=== PATIENT | female | born 1995 | race Asian ===

== ENCOUNTER 2016-04-15 15:33 | Inpatient (IN) | payer OTHER ==
[~2016-04-15] VITALS: Ht 157.5 cm; Wt 59.3 kg
[2016-04-15] MEDS ORDERED: FENTANYL CITRATE INJ 50 MCG/1 ML 2 ML VIAL IV STA ×2 (15:45→16:20)
[2016-04-15] MEDS ORDERED: ONDANSETRON INJ 2 MG/ML 2 ML VIAL IV STA (15:45)
[2016-04-15] MEDS ORDERED: SODIUM CHLORIDE 0.9% 1000ML 1,000 ML IV STA (15:45)
--- NOTE | 2016-04-15 16:14 | DIAGNOSTIC IMAGING REPORT ---
CHEST ONE VIEW PORTABLE CLINICAL HISTORY: vomiting, AMS COMPARISON STUDY: No previous studies for comparison. FINDINGS: The bones soft tissues and hemidiaphragms are normal. The cardiomediastinal silhouette is normal. The lungs are clear. The pulmonary vasculature is normal. IMPRESSION: Negative chest. Electronically signed by: Francisco Javier Castillo M.D. 04/15/2016 4:12 PM Dictated Date/Time: 04/15/2016 4:12 PM
[2016-04-15 16:47] LABS: BASO % 0.3 %; BASO ABS # 0.03 K/uL (0-0.2); COMPLETE YES; EOS % 1.3 %; HEMATOCRIT 36.6 % (37-47); IG% 0.3 %; LYMPH % 13.1 %; LYMPH ABS # 1.55 K/uL (1.2-3.4); MEAN CORPUSCULAR HEMOGLOBIN 30.3 pg (25-34); MEAN CORPUSCULAR HGB CONC 34.4 g/dl (32-36); MEAN PLATELET VOLUME 9.9 fL (7.4-10.4); MONO % 7.4 %; NEUT % 77.6 %; PLATELET COUNT 276 K/uL (130-400); RED BLOOD COUNT 4.16 M/uL (4.2-5.4); WHITE BLOOD COUNT 11.83 K/uL (4.8-10.8)
[2016-04-15 16:50] LABS: ISTAT CREATININE 0.6 mg/dl (0.6-1.3); ISTAT HEMOGLOBIN 13.3 g/dl (12.0-16.0); ISTAT IONIZED CALCIUM 1.13 mmol/l (1.12-1.32)
[2016-04-15 16:53] LABS: BUN/CREATININE RATIO 18.5 (10-20); CALCIUM 8.7 mg/dl (8.5-10.1); CREATININE 0.68 mg/dl (0.60-1.20); POTASSIUM 3.8 mmol/L (3.5-5.1)
--- NOTE | 2016-04-15 16:54 | DIAGNOSTIC IMAGING REPORT ---
HEAD CT NONCONTRAST CT DOSE: 638.56 mGycm HISTORY: Mental status change Vomiting, AMS TECHNIQUE: Multiaxial CT images of the head were performed without the use of intravenous contrast. Comparison: None. Findings: The paranasal sinuses and mastoid air cells are clear. The calvarium and skull base are intact. The ventricles and sulci are within normal limits. There is no mass, hematoma, midline shift, or acute infarct. Impression: No acute intracranial abnormality. Electronically signed by: Francisco Javier Castillo M.D. 04/15/2016 4:53 PM Dictated Date/Time: 04/15/2016 4:52 PM
[2016-04-15] MEDS ORDERED: HYDROmorphone INJ 1 MG/ML SYR IV STA ×2 (16:55→18:00)
[2016-04-15 16:59] LABS: PREG INTERNAL NEGATIVE QC NEG CLEAR BACKGROUND; PREG INTERNAL POSITIVE QC POS CONTROL LINE
[2016-04-15] MEDS ORDERED: OPTIRAY 320 IV PRN (17:00)
[2016-04-15 17:02] LABS: ACETAMINOPHEN < 2 ug/ml (10-30)
--- NOTE | 2016-04-15 17:05 | DIAGNOSTIC IMAGING REPORT ---
ABDOMEN AND PELVIS CT WITH IV CONTRAST CT DOSE: 1156.92 mGycm HISTORY: Right lower quadrant abdominal pain. Vomiting. TECHNIQUE: Multiaxial CT images of the abdomen and pelvis were performed following the use of intravenous contrast. COMPARISON STUDY: None. FINDINGS: The lung bases are clear. No pneumoperitoneum. No pneumatosis. The liver, gallbladder, pancreas, spleen, kidneys, and adrenal glands are unremarkable. No retroperitoneal lymphadenopathy. Mild bladder wall thickening may be due to underdistention. There is a heterogeneous appearance to the endometrium. There is unremarkable. Diffuse mild thickening of the colon which is fluid-filled. No evidence for bowel obstruction. There is also a distended and fluid-filled appendix with associated periappendiceal fat stranding/fluid. No perforation or abscess. The appendix measures up to 1 cm in diameter. IMPRESSION: 1. Distended and fluid-filled appendix with associated periappendiceal fat stranding/fluid. Therefore, these findings are consistent with acute appendicitis. However, there is an associated pancolitis. Therefore, it is unclear whether this represents primary appendicitis versus secondary appendicitis due to the colitis. The colitis favors an infectious or inflammatory process. 2. Mild bladder wall thickening which may be due to underdistention. Recommend correlation with urinalysis. 3. Heterogeneous appearance the endometrium which may be age-related. Follow-up pelvic ultrasound in 6-8 weeks is recommended to ensure resolution. Electronically signed by: Reyes Noel M.D. 04/15/2016 5:04 PM Dictated Date/Time: 04/15/2016 4:58 PM
[2016-04-15] MEDS ORDERED: CEFOXITIN SOD 2 GM VIAL IV STA (17:09)
--- NOTE | 2016-04-15 18:08 | EMERGENCY ROOM VISIT NOTE ---
History Report prepared by Yayo: Delonte Vuong Under the Supervision of: Dr. Nikita Bonilla M.D. First contact with patient: 15:41 Chief Complaint: ABDOMINAL PAIN Stated Complaint: AMS, AB PAIN, VOMITING History of Present Illness The patient is an unknown year old female who presents to the Emergency Room with complaints of constant right lower quadrant abdominal pain beginning several hours prior to arrival. As per EMS, the patient was found in [place] [facility] on campus in the bathroom vomiting. They note a classmate states the patient was complaining of right sided abdominal pain during class and was fidgety. The patient notes she took Advil for her symptoms this morning. She denies diarrhea, burning with urination, fever, recent falls, hitting her head, chance of , recent alcohol use, and history of abdominal surgery. The history is limited secondary to the patient's noncompliance with conversation. 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 Past Medical & Surgical Medical Problems: (1) No pertinent past medical history Family History Patient reports no known family medical history. Social History Marital Status: single Occupation Status: [employer] Current/Historical Medications No Active Prescriptions or Reported Meds Allergies Coded Allergies: No Known Allergies (Unverified , 04/15/16) Physical Exam Vital Signs Date Time Temp Pulse Resp B/P Pulse Ox O2 Delivery O2 Flow Rate FiO2 04/15/16 18:30 72 16 113/67 97 04/15/16 18:00 84 114/66 100 04/15/16 16:55 66 16 105/69 99 Room Air 04/15/16 16:20 76 16 116/90 95 Room Air 04/15/16 16:10 66 04/15/16 16:00 62 18 100/74 98 Room Air 04/15/16 15:41 36.4 62 18 90/69 100 Room Air Physical Exam GENERAL: Patient is somnolent but answers questions in hushed voice, sometimes not at all. Will not open eyes. She is able to move head from side to side without problems. Uncomfortable appearing. periodically moaning. HEENT: No acute trauma, normocephalic atraumatic, mucous membranes dry, no nasal congestion, no scleral icterus. NECK: No stridor, no adenopathy, no meningismus, trachea is midline. LUNGS: No dyspnea. Clear to auscultation and equal bilaterally. No wheeze, no rhonchi. HEART: Regular rate and rhythm. No murmurs, rubs, gallops appreciated. ABDOMEN: Jumps off bed with palpation to right lower quadrant. Soft, bowel sounds positive, no masses appreciated, no peritonitis. BACK: No midline tenderness, no CVA tenderness EXTREMITIES: Normal motion all extremities, no cyanosis, no edema. NEUROLOGIC: Alert and oriented, no acute motor or sensory deficits, no focal weakness, cranial nerves grossly intact. SKIN: No rash, no jaundice, no diaphoresis. Medical Decision & Procedures ER Provider Diagnostic Interpretation: X ray results are stated below per my interpretation and the radiologist's interpretation. CHEST ONE VIEW PORTABLE CLINICAL HISTORY: vomiting, AMS COMPARISON STUDY: No previous studies for comparison. FINDINGS: The bones soft tissues and hemidiaphragms are normal. The cardiomediastinal silhouette is normal. The lungs are clear. The pulmonary vasculature is normal. IMPRESSION: Negative chest. Electronically signed by: Francisco Javier Castillo M.D. 04/15/2016 4:[address] DOSE: 638.56 mGycm HISTORY: Mental status change Vomiting, AMS TECHNIQUE: Multiaxial CT images of the head were performed without the use of intravenous contrast. Comparison: None. Findings: The paranasal sinuses and mastoid air cells are clear. The calvarium and skull base are intact. The ventricles and sulci are within normal limits. There is no mass, hematoma, midline shift, or acute infarct. Impression: No acute intracranial abnormality. Electronically signed by: Francisco Javier Castillo M.D. 04/15/2016 4:53 PM ABDOMEN AND PELVIS CT WITH IV CONTRAST CT DOSE: 1156.92 mGycm HISTORY: Right lower quadrant abdominal pain. Vomiting. TECHNIQUE: Multiaxial CT images of the abdomen and pelvis were performed following the use of intravenous contrast. COMPARISON STUDY: None. FINDINGS: The lung bases are clear. No pneumoperitoneum. No pneumatosis. The liver, gallbladder, pancreas, spleen, kidneys, and adrenal glands are unremarkable. No retroperitoneal lymphadenopathy. Mild bladder wall thickening may be due to underdistention. There is a heterogeneous appearance to the endometrium. There is unremarkable. Diffuse mild thickening of the colon which is fluid-filled. No evidence for bowel obstruction. There is also a distended and fluid-filled appendix with associated periappendiceal fat stranding/fluid. No perforation or abscess. The appendix measures up to 1 cm in diameter. IMPRESSION: 1. Distended and fluid-filled appendix with associated periappendiceal fat stranding/fluid. Therefore, these findings are consistent with acute appendicitis. However, there is an associated pancolitis. Therefore, it is unclear whether this represents primary appendicitis versus secondary appendicitis due to the colitis. The colitis favors an infectious or inflammatory process. 2. Mild bladder wall thickening which may be due to underdistention. Recommend correlation with urinalysis. 3. Heterogeneous appearance the endometrium which may be age-related. Follow-up pelvic ultrasound in 6-8 weeks is recommended to ensure resolution. Electronically signed by: Reyes Noel M.D. 04/15/2016 5:04 PM Laboratory Results 04/15/16 16:11 Red Blood Count 4.16, Mean Corpuscular Volume 88.0, Mean Corpuscular Hemoglobin 30.3, Mean Corpuscular Hemoglobin Concent 34.4, Mean Platelet Volume 9.9, Neutrophils (%) (Auto) 77.6, Lymphocytes (%) (Auto) 13.1, Monocytes (%) (Auto) 7.4, Eosinophils (%) (Auto) 1.3, Basophils (%) (Auto) 0.3, Neutrophils # (Auto) 9.18, Lymphocytes # (Auto) 1.55, Monocytes # (Auto) 0.88, Eosinophils # (Auto) 0.15, Basophils # (Auto) 0.03 04/15/16 16:11 Test 04/15/16 16:11 04/15/16 16:16 04/15/16 16:28 White Blood Count 11.83 K/uL (4.8-10.8) Red Blood Count 4.16 M/uL (4.2-5.4) Hemoglobin 12.6 g/dL (12.0-16.0) Hematocrit 36.6 % (37-47) Mean Corpuscular Volume 88.0 fL (80-100) Mean Corpuscular Hemoglobin 30.3 pg (25-34) Mean Corpuscular Hemoglobin Concent 34.4 g/dl (32-36) Platelet Count 276 K/uL (130-400) Mean Platelet Volume 9.9 fL (7.4-10.4) Neutrophils (%) (Auto) 77.6 % Lymphocytes (%) (Auto) 13.1 % Monocytes (%) (Auto) 7.4 % Eosinophils (%) (Auto) 1.3 % Basophils (%) (Auto) 0.3 % Neutrophils # (Auto) 9.18 K/uL (1.4-6.5) Lymphocytes # (Auto) 1.55 K/uL (1.2-3.4) Monocytes # (Auto) 0.88 K/uL (0.11-0.59) Eosinophils # (Auto) 0.15 K/uL (0-0.5) Basophils # (Auto) 0.03 K/uL (0-0.2) RDW Standard Deviation 42.9 fL (36.4-46.3) RDW Coefficient of Variation 13.3 % (11.5-14.5) Immature Granulocyte % (Auto) 0.3 % Immature Granulocyte # (Auto) 0.04 K/uL (0.00-0.02) Est Creatinine Clear Calc Drug Dose 102.7 ml/min Estimated GFR () 143.9 Estimated GFR (Non- 124.2 BUN/Creatinine Ratio 18.5 (10-20) Calcium Level 8.7 mg/dl (8.5-10.1) Total Bilirubin 0.5 mg/dl (0.2-1) Direct Bilirubin 0.1 mg/dl (0-0.2) Aspartate Amino Transf (AST/SGOT) 11 U/L (15-37) Alanine Aminotransferase (ALT/SGPT) 20 U/L (12-78) Alkaline Phosphatase 48 U/L (45-117) Total Protein 7.9 gm/dl (6.4-8.2) Albumin 4.0 gm/dl (3.4-5.0) Lipase 88 U/L (73-393) Human Chorionic Gonadotropin, Qual NEG (NEG) Salicylates Level < 1.7 mg/dl (2.8-20) Acetaminophen Level < 2 ug/ml (10-30) Bedside Hemoglobin 13.3 g/dl (12.0-16.0) Bedside Hematocrit 39 % (37-47) Bedside Sodium 139 mEq/L (135-144) Bedside Potassium 3.8 mEq/L (3.3-5.0) Bedside Chloride 103 mEq/L (101-112) Bedside Total CO2 22 mEq/l (24-31) Anion Gap 18.0 mmol/L (16-25) Bedside Blood Urea Nitrogen 14 mg/dl (7-18) Bedside Creatinine 0.6 mg/dl (0.6-1.3) Bedside Glucose (other) 95 mg/dl (70-99) Bedside Ionized Calcium (Debra) 1.13 mmol/l (1.12-1.32) Ethyl Alcohol mg/dL < 3.0 mg/dl (0-3) Laboratory results as reviewed by me. Medications Administered Medications (Trade) Dose Ordered Sig/Cortney Route Start Time Stop Time Status Last Admin Dose Admin Sodium Chloride (Nss 1000ml) 1,000 ml @ 999 mls/hr Q1H1M STAT IV 04/15/16 15:45 04/15/16 16:45 DC 04/15/16 16:00 999 MLS/HR Fentanyl Citrate (Fentanyl Inj) 50 mcg NOW STAT IV 04/15/16 15:45 04/15/16 15:48 DC 04/15/16 16:00 50 MCG Ondansetron HCl (Zofran Inj) 4 mg NOW STAT IV 04/15/16 15:45 04/15/16 15:48 DC 04/15/16 16:00 4 MG Fentanyl Citrate (Fentanyl Inj) 50 mcg NOW STAT IV 04/15/16 16:20 04/15/16 16:21 DC 04/15/16 16:27 50 MCG Hydromorphone HCl (Dilaudid Inj) 1 mg NOW STAT IV 04/15/16 16:55 04/15/16 16:56 DC 04/15/16 17:04 1 MG Cefoxitin Sodium (Mefoxin IV) 2,000 mg NOW STAT IV 04/15/16 17:09 04/15/16 17:10 DC 04/15/16 17:30 2,000 MG Hydromorphone HCl (Dilaudid Inj) 1 mg NOW STAT IV 04/15/16 18:00 04/15/16 18:02 DC 04/15/16 18:18 1 MG Bupivacaine HCl (Marcaine 0.5% MPF Inj) 30 ml STK-MED ONCE .ROUTE 04/15/16 18:29 04/15/16 18:31 DC 04/15/16 20:08 11 ML Lorazepam (Ativan Inj) 1 mg NOW STAT IV 04/15/16 18:41 04/15/16 18:42 DC 04/15/16 18:54 1 MG Ondansetron HCl 4 mg 4 mg ONE PRN IV 04/15/16 19:15 04/16/16 00:15 04/15/16 20:51 4 MG Lactated Ringer's (Lr 1000ml) 1,000 ml @ 75 mls/hr [id number] IV 04/15/16 20:15 05/15/16 20:14 04/15/16 22:14 75 MLS/HR ED Course 1543: The patient was evaluated in room B3B. A complete history and physical exam was performed. 1545: Ordered Zofran Inj 4 mg IC, Fentanyl Inj 50 mcg IV, Sodium Chloride 1,000 ml @ 999 mls/hr IV. 1620: Ordered Fentanyl Inj 50 mcg IV. 1655: Ordered Dilaudid Inj 1 mg IV. 1700: I spoke to MICHAEL Meraz (Radiology) about the patient's CT, and he is unsure whether the colitis is causing the appendicitis or vice versa. 1708: Reevaluated the patient at this time and updated her. The patient is starting to feel better after the Dilaudid. 1709: Ordered Mefoxin IV 2,000 mg IV. 1759: Reevaluated the patient at this time, and her pain is beginning to return. The patient's sister is at bedside, and her father is en route from [place]. 1800: Ordered Dilaudid Ing 1 mg IV. 1803: I spoke to MICHAEL Mondragon (General Surgery) about the patient's case, and he will evaluate the patient. 1836: Updated the patient's parents at this time. The patient is a little anxious about going to the operating room. 1841: Ordered Ativan Inj 1 mg IV. Medical Decision Differential: Appendicitis, Ovarian Issue, , MSK, Diverticulitis, UTI, Renal Colic, Bowel Obstruction, Aortic Pathology, amongst other pathologies entertained. 20 yr old female arrives in quite some distress essentially so upset unable to talk or really give much of a history. Severely upset and requiring multiple rounds pain medications for the amount of pain she is in. Given such extremis and altered felt enough that CT head necessary which is normal fortunately. Labs unremarkable including drug/etoh. CT done emergently of abdomen given severity of pain. Diffuse colitis noted though there is clearly appendicitis. No perforation/abscess though needs emergent OR given level of pain. Mefoxin given. Gen Surg down to evaluate and took directly to OR. Consults Time Called: 165 Consulting Physician: MICHAEL Meraz (Radiology) Returned Call: 1700 I spoke to MICHAEL Meraz (Radiology) about the patient's CT, and he is unsure whether the colitis is causing the appendicitis or vice versa. Additional Consults: Time Called: 170 Consulted Physician: MICHAEL Mondragon (General Surgery) Returned Call: 180 Additional Comments: I spoke to MICHAEL Mondragon (General Surgery) about the patient's case, and he will evaluate the patient. Impression Primary Impression: Acute appendicitis Additional Impression: Colitis Scribe Attestation The scribe's documentation has been prepared under my direction and personally reviewed by me in its entirety. I confirm that the note above accurately reflects all work, treatment, procedures, and medical decision making performed by me. Departure Information Dispostion Being Evaluated By Surgeon (MICHAEL Mondragon (General Surgery)) Prescriptions No Active Prescriptions or Reported Meds Problem Qualifiers Primary Impression: Acute appendicitis Acute appendicitis type: with localized peritonitis Qualified Codes: K35.3 - Acute appendicitis with localized peritonitis
[2016-04-15] MEDS ORDERED: CEFOXITIN SOD 2 GM VIAL ONE ×2 (18:28)
[2016-04-15] MEDS ORDERED: BUPIVACAINE 0.5 % 5 MG/1 ML MPF 30ML VIAL ONE (18:29)
[2016-04-15] MEDS ORDERED: EpHEDrine SULFATE INJ 50 MG/ML AMP ONE (18:35)
[2016-04-15] MEDS ORDERED: ROCURONIUM BROMIDE 10 MG/ML 5 ML VIAL ONE (18:35)
[2016-04-15] MEDS ORDERED: FENTANYL CITRATE INJ 50 MCG/1 ML 2 ML VIAL ONE (18:35)
[2016-04-15] MEDS ORDERED: MIDAZOLAM HCL 1 MG/ML 2ML VIAL ONE (18:35)
[2016-04-15] MEDS ORDERED: PROPOFOL IV EMULSION 10 MG/ML 20 ML VIAL IV ONE (18:35)
[2016-04-15] MEDS ORDERED: SUCCINYLCHOLINE CHLORIDE 20 MG/ML 10 ML VIAL IV ONE (18:35)
[2016-04-15] MEDS ORDERED: PHENYLEPHRINE HCL INJ 10 MG/ML VIAL ONE (18:35)
[2016-04-15] MEDS ORDERED: NEOSTIGMINE METHYLSULFATE 5 MG/5 ML SYR ONE (18:35)
[2016-04-15] MEDS ORDERED: GLYCOPYRROLATE INJ 0.2 MG/ML VIAL ONE (18:35)
[2016-04-15] MEDS ORDERED: ONDANSETRON INJ 2 MG/ML 2 ML VIAL ONE (18:35)
[2016-04-15] MEDS ORDERED: LIDOCAINE HCL 2% 2 ML VIAL (20MG/ML) ONE (18:35)
[2016-04-15] MEDS ORDERED: DEXAMETHASONE SOD INJ 4 MG/ML VIAL ONE (18:35)
[2016-04-15] MEDS ORDERED: LORAZEPAM 2 MG/ML 1 ML VIAL IV STA (18:41)
--- NOTE | 2016-04-15 18:41 | History and Physical ---
History & Physical Date Apr 15, 2016. History of Present Illness The patient is a 20 year old female with complaints of RLQ pain, nausea, vomiting CT shows acute appendicitis and colitis- very dilated appendix Past Medical/Surgical History Medical Problems: (1) No pertinent past medical history Additional History Hepatic Disease: No Endocrine Disorder: No Kidney Disease: No Hypertension: No Heart Disease: No Bleeding Tendencies: No Infectious Diseases: No Allergies Coded Allergies: No Known Allergies (Unverified , 04/15/16) Home Medications No Active Prescriptions or Reported Meds Physical Examination Skin: warm/dry, no rash Eyes: sclerae normal Head: normocephalic Neck: supple Respiratory/Chest: no respiratory distress Cardiovascular: regular rate, rhythm Abdomen / GI: + pertinent finding (tender RLQ) Neurologic/Psych: + pertinent finding (pt in pain- responsive) Diagnosis acute appendicitis, colitis Plan of Treatment for laparoscopic appendectomy, possible open operation
[2016-04-15] MEDS ORDERED: ATROPINE SULFATE 0.1 MG/ML 5ML SYR IV PRN (19:15)
[2016-04-15] MEDS ORDERED: FENTANYL CITRATE INJ 50 MCG/1 ML 2 ML VIAL IV PRN (19:15)
[2016-04-15] MEDS ORDERED: PROMETHAZINE HCL INJ 12.5 MG in SODIUM CHLORIDE 0.9% 50ML 50 ML IV PRN (19:15)
[2016-04-15] MEDS ORDERED: KETOROLAC TROMETHAMINE 30 MG/ML VIAL IV. PRN (19:15)
[2016-04-15] MEDS ORDERED: ONDANSETRON INJ 2 MG/ML 2 ML VIAL IV PRN (19:15)
[2016-04-15] MEDS ORDERED: MoRPHine SULFATE 4 MG/ML 1 ML CARP\\VIAL IV PRN (20:15)
[2016-04-15] MEDS ORDERED: HYDROCODONE/ACETAMOPHEN 5/325MG TAB PO PRN ×2 (20:15)
[2016-04-15] MEDS ORDERED: PROMETHAZINE HCL INJ 25 MG in SODIUM CHLORIDE 0.9% 50ML 50 ML IV PRN (20:15)
--- NOTE | 2016-04-15 20:15 | [facility] Post Operative Brief Note ---
Immediate Operative Summary Operative Date Apr 15, 2016. Pre-Operative Diagnosis Acute appendicitis Post-Operative Diagnosis Same as pre-operative Procedure(s) Performed Laparoscopic appendectomy Surgeon Dr. Michael Garcia MD [employer] Surgeon(s) None Estimated Blood Loss 5ml Findings acute appendicitis Specimens A.Appendix Anesthesia gen Complication(s) None Disposition Recovery Room / PACU
--- NOTE | 2016-04-15 21:10 | Anesthesiology Progress Note ---
Anesthesia Post Op Note Date & Time Apr 15, 2016 at 21:10 Vital Signs Pain Intensity: 0 Vital Signs Past 12 Hours Date Time Temp Pulse Resp B/P Pulse Ox O2 Delivery O2 Flow Rate FiO2 04/15/16 21:05 67 16 119/70 100 Room Air 04/15/16 20:55 76 16 119/70 100 Mask 5 04/15/16 20:45 77 16 111/71 100 Mask 10 04/15/16 20:38 36.4 78 16 120/80 100 Mask 10 04/15/16 18:30 72 16 113/67 97 04/15/16 18:00 84 114/66 100 04/15/16 16:55 66 16 105/69 99 Room Air 04/15/16 16:20 76 16 116/90 95 Room Air 04/15/16 16:10 66 04/15/16 16:00 62 18 100/74 98 Room Air 04/15/16 15:41 36.4 62 18 90/69 100 Room Air Notes Mental Status: alert / awake / arousable, participated in evaluation Pt Amnestic to Procedure: Yes Nausea / Vomiting: adequately controlled Pain: adequately controlled Airway Patency, RR, SpO2: stable & adequate BP & HR: stable & adequate Hydration State: stable & adequate Anesthetic Complications: no major complications apparent
[2016-04-15 21:25] VITALS: BP 112/79; PULSE 76; TEMP 36.5; O2SAT 100; Ht 157.5 cm; Wt 59.3 kg
--- NOTE | 2016-04-15 21:37 | OPERATIVE REPORT ---
DATE OF OPERATION: 04/15/2016 NAME OF OPERATION: Laparoscopic appendectomy. PREOPERATIVE DIAGNOSIS: Acute appendicitis. POSTOPERATIVE DIAGNOSIS: Same. STAFF SURGEON: Dr. Garcia. ANESTHESIA: General. PROCEDURE: The patient was brought in the operating room and placed on the operating table in supine position. Her abdomen was prepped and draped in the usual fashion. Root catheter was placed. Orogastric tube was placed. Her abdomen was prepped and draped, 0.5% plain Marcaine was used to anesthetize all incisions. Incision was made above the umbilicus carrying dissection down, placing a Veress needle producing pneumoperitoneum. An 11 mm port placed at this level and then a 5 mm port placed suprapubically and then a 12 mm port placed laterally on the left lower quadrant under visualization. The appendix was retrocecal, but it was identified, it was very much dilated distally, it was acutely inflamed. Dissection was carried out at the base and then the base transected using an Endo ELIN stapler and then using additional loads. The mesoappendix was transected, the appendix placed in an Endobag. After appropriate hemostasis and irrigation, the Endobag was removed through the left lower quadrant port site. All ports were then removed. The 12 mm site and 11 mm site were closed by reapproximating the fascia using 0 Vicryl suture. The left lower quadrant skin was reapproximated using subcuticular 4-0 Monocryl and Steri-Strips and then the other 2 sites closed using subcuticular 4-0 Monocryl and Dermabond. The patient was transferred to recovery room in stable condition. I attest to the content of the Intraoperative Record and any orders documented therein. Any exceptio ns are noted below.
[2016-04-15 21:55] VITALS: BP 110/72; PULSE 73; TEMP 36.6; O2SAT 100
[2016-04-15] MEDS: LACTATED RINGER'S 1000ML 1,000 ML IV SCH (22:14)
[2016-04-15 22:25] VITALS: BP 108/77; PULSE 81; TEMP 36.7; O2SAT 99
[2016-04-15] MEDS: KETOROLAC TROMETHAMINE 30 MG/ML VIAL IV. SCH (22:33)
[2016-04-15] MEDS: METRONIDAZOLE / NSS 500 MG in PREMIXED NSS 100 ML IV SCH (22:33)
[2016-04-15 23:25] VITALS: BP 100/61; PULSE 118; TEMP 36.7; O2SAT 100
[2016-04-16] VITALS (7 sets, daily range): BP systolic 93–107; BP diastolic 53–70; PULSE 73–89; TEMP 36.3–37.1; O2SAT 97–100
[2016-04-16] MEDS: CIPROFLOXACIN / D5W 400 MG in PREMIXED IN D5W 200 ML IV SCH ×3 (00:40→23:48)
[2016-04-16] MEDS: KETOROLAC TROMETHAMINE 30 MG/ML VIAL IV. SCH ×4 (04:08→22:16)
[2016-04-16] MEDS ORDERED: HYDR-5688 PO (05:51)
[2016-04-16] MEDS ORDERED: CIPR-255 PO (05:51)
--- NOTE | 2016-04-16 05:54 | Surgery Progress Note ---
Surgery Progress Note Date of Service Apr 16, 2016. Subjective feeling much better- alert, responsive, has done well overnight per nurse Objective Vital Signs: Date Time Temp Pulse Resp B/P Pulse Ox O2 Delivery O2 Flow Rate FiO2 04/16/16 04:04 36.7 80 12 105/70 100 Room Air 04/16/16 00:35 36.5 89 16 107/64 97 Room Air 04/16/16 00:30 Room Air 04/15/16 23:25 36.7 118 16 100/61 100 Room Air 04/15/16 22:25 36.7 81 16 108/77 99 Room Air 04/15/16 21:55 36.6 73 16 110/72 100 Room Air 04/15/16 21:25 36.5 76 14 112/79 100 Room Air 04/15/16 21:25 36.5 76 14 112/79 100 Room Air 04/15/16 21:25 100 Room Air 04/15/16 21:25 Room Air 04/15/16 21:15 36.5 79 16 119/72 100 Room Air 04/15/16 21:05 67 16 119/70 100 Room Air 04/15/16 20:55 76 16 119/70 100 Mask 5 04/15/16 20:45 77 16 111/71 100 Mask 10 04/15/16 20:38 36.4 78 16 120/80 100 Mask 10 04/15/16 18:30 72 16 113/67 97 04/15/16 18:00 84 114/66 100 04/15/16 16:55 66 16 105/69 99 Room Air 04/15/16 16:20 76 16 116/90 95 Room Air 04/15/16 16:10 66 04/15/16 16:00 62 18 100/74 98 Room Air 04/15/16 15:41 36.4 62 18 90/69 100 Room Air General Appearance: no apparent distress Respiratory/Chest: no respiratory distress Abdomen: soft Incision(s): intact Laboratory Results: Results Past 24 Hours Test 04/15/16 16:11 04/15/16 16:16 04/15/16 16:28 Range/Units White Blood Count 11.83 4.8-10.8 K/uL Red Blood Count 4.16 4.2-5.4 M/uL Hemoglobin 12.6 12.0-16.0 g/dL Hematocrit 36.6 37-47 % Mean Corpuscular Volume 88.0 80-100 fL Mean Corpuscular Hemoglobin 30.3 25-34 pg Mean Corpuscular Hemoglobin Concent 34.4 32-36 g/dl Platelet Count 276 130-400 K/uL Mean Platelet Volume 9.9 7.4-10.4 fL Neutrophils (%) (Auto) 77.6 % Lymphocytes (%) (Auto) 13.1 % Monocytes (%) (Auto) 7.4 % Eosinophils (%) (Auto) 1.3 % Basophils (%) (Auto) 0.3 % Neutrophils # (Auto) 9.18 1.4-6.5 K/uL Lymphocytes # (Auto) 1.55 1.2-3.4 K/uL Monocytes # (Auto) 0.88 0.11-0.59 K/uL Eosinophils # (Auto) 0.15 0-0.5 K/uL Basophils # (Auto) 0.03 0-0.2 K/uL RDW Standard Deviation 42.9 36.4-46.3 fL RDW Coefficient of Variation 13.3 11.5-14.5 % Immature Granulocyte % (Auto) 0.3 % Immature Granulocyte # (Auto) 0.04 0.00-0.02 K/uL Sodium Level 138 136-145 mmol/L Potassium Level 3.8 3.5-5.1 mmol/L Chloride Level 106 98-107 mmol/L Carbon Dioxide Level 22 21-32 mmol/L Anion Gap 10.0 18.0 16-25 mmol/L Blood Urea Nitrogen 13 7-18 mg/dl Creatinine 0.68 0.60-1.20 mg/dl Est Creatinine Clear Calc Drug Dose 102.7 ml/min Estimated GFR () 143.9 Estimated GFR (Non- 124.2 BUN/Creatinine Ratio 18.5 10-20 Random Glucose 88 70-99 mg/dl Calcium Level 8.7 8.5-10.1 mg/dl Total Bilirubin 0.5 0.2-1 mg/dl Direct Bilirubin 0.1 0-0.2 mg/dl Aspartate Amino Transf (AST/SGOT) 11 15-37 U/L Alanine Aminotransferase (ALT/SGPT) 20 12-78 U/L Alkaline Phosphatase 48 45-117 U/L Total Protein 7.9 6.4-8.2 gm/dl Albumin 4.0 3.4-5.0 gm/dl Lipase 88 73-393 U/L Human Chorionic Gonadotropin, Qual NEG NEG Salicylates Level < 1.7 2.8-20 mg/dl Acetaminophen Level < 2 10-30 ug/ml Bedside Hemoglobin 13.3 12.0-16.0 g/dl Bedside Hematocrit 39 37-47 % Bedside Sodium 139 135-144 mEq/L Bedside Potassium 3.8 3.3-5.0 mEq/L Bedside Chloride 103 101-112 mEq/L Bedside Total CO2 22 24-31 mEq/l Bedside Blood Urea Nitrogen 14 7-18 mg/dl Bedside Creatinine 0.6 0.6-1.3 mg/dl Bedside Glucose (other) 95 70-99 mg/dl Bedside Ionized Calcium (Debra) 1.13 1.12-1.32 mmol/l Ethyl Alcohol mg/dL < 3.0 0-3 mg/dl Assessment & Plan 04/16/16- s/p lap appendectomy- colonic edema on CT but colon looked normal intraop- will cont IV atbx today- prob d/c tomorrow .
[2016-04-16] MEDS: METRONIDAZOLE / NSS 500 MG in PREMIXED NSS 100 ML IV SCH ×3 (06:13→22:16)
[2016-04-16 07:28] LABS: PREG INTERNAL NEGATIVE QC NEG CLEAR BACKGROUND; PREG INTERNAL POSITIVE QC POS CONTROL LINE
[2016-04-16 07:29] LABS: URINE APPEARANCE CLEAR (CLEAR); URINE BILIRUBIN NEG (NEG); URINE COLOR YELLOW; URINE NITRITE NEG (NEG); URINE SPECIFIC GRAVITY 1.021 (1.000-1.030); UROBILINOGEN NEG (NEG); ZZUR CULT IF INDIC CLEAN CATCH NO
[2016-04-16 07:32] LABS: MANUAL MICROSCOPIC REQUIRED? NO; REVIEW REQ? NO
[2016-04-16] MEDS ORDERED: NURSING DECISION MEDICATION ORDER SCH (08:00)
[2016-04-16] MEDS ORDERED: COUGH DROP (SUGAR FREE) LOZ 24 LOZ/1 BOX PO PRN (09:15)
[2016-04-16] MEDS: ONDANSETRON INJ 2 MG/ML 2 ML VIAL IV PRN (09:37)
[2016-04-16] MEDS: LACTATED RINGER'S 1000ML 1,000 ML IV SCH ×2 (09:45→23:48)
[2016-04-16] MEDS: MoRPHine SULFATE 2 MG/ML CARP IV PRN ×2 (13:56→19:17)
[2016-04-16] MEDS: PROMETHAZINE HCL INJ 12.5 MG in SODIUM CHLORIDE 0.9% 50ML 50 ML IV PRN (15:07)
--- NOTE | 2016-04-16 21:34 | Progress Note ---
Subjective Date of Service: Apr 16, 2016. Subjective Pt evaluation today including: conversation w/ patient, physical exam, chart review, lab review, review of studies, conversation w/ infrastructure consultant, review of inpatient medication list friends present - OK w pt that we talked/examined with them present she notes that her neck hurts but no stridor no trouble breathing just sore throat notes ongoing abdominal pain - mostly lower notes that prior to this episode she did not have diarrhea/bloody diarrhea episodes - but rather would have long bouts of constipation sometimes lasting a week between bowel movements - took a "divehi medicine" (friends help discern it appears to be a pancreatic enzyme supplement and an herbal available OTC in [place]) for her stomach pain - not sure if it really helped though. stomach pain would be epigastric - intense at times - not clearly related to eating and also not clearly related to not eating - would come and go at random. unclear how much it related to the constipation as well. when she has BM's after a week - sometimes there is blood. 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 Problem List Medical Problems: (1) Acute appendicitis Status: Acute (2) Colitis Status: Acute Review of Systems ENT: + see HPI Abdomen: + GI bleeding, + constipation, + pain, + see HPI ros otherwise negative except for as above Objective Vital Signs Date Time Temp Pulse Resp B/P Pulse Ox O2 Delivery O2 Flow Rate FiO2 04/16/16 19:30 36.3 76 18 99/67 97 Room Air 04/16/16 15:30 36.4 73 16 105/65 97 Room Air 04/16/16 11:08 37.1 89 16 100/64 97 Room Air 04/16/16 07:43 Room Air 04/16/16 07:03 37.1 82 16 93/53 97 Room Air 04/16/16 04:04 36.7 80 12 105/70 100 Room Air 04/16/16 00:35 36.5 89 16 107/64 97 Room Air 04/16/16 00:30 Room Air 04/15/16 23:25 36.7 118 16 100/61 100 Room Air 04/15/16 22:25 36.7 81 16 108/77 99 Room Air 04/15/16 21:55 36.6 73 16 110/72 100 Room Air 04/15/16 21:25 36.5 76 14 112/79 100 Room Air 04/15/16 21:25 36.5 76 14 112/79 100 Room Air 04/15/16 21:25 100 Room Air 04/15/16 21:25 Room Air 04/15/16 21:15 36.5 79 16 119/72 100 Room Air 04/15/16 21:05 67 16 119/70 100 Room Air 04/15/16 20:55 76 16 119/70 100 Mask 5 Physical Exam General Appearance: no apparent distress (fatigued appearing, at rest; then has a wave of abdominal pain and appears uncomfortable for a while before it lets up) Eyes: EOMI ENT: hearing grossly normal Neck: + pertinent finding (full ROM) Respiratory/Chest: no respiratory distress, no accessory muscle use Abdomen: soft, + tenderness (tender - but mostly epigastric - more to palp than with stethoscope but is fairly tender epigastric w both; no rebound, voluntary guarding to moderate palp or more only. (+) BS) Extremities: normal range of motion Neurologic/Psychiatric: continuum of care manager II-XII nml as tested, alert, normal mood/affect Skin: normal color, warm/dry Laboratory Results Last 24 Hours Test 04/16/16 05:45 Urine Color YELLOW Urine Appearance CLEAR Urine pH 5.0 Urine Specific [place] 1.021 Urine Protein NEG Urine Glucose (UA) NEG Urine Ketones 1+ Urine Occult Blood TRACE Urine Nitrite NEG Urine Bilirubin NEG Urine Urobilinogen NEG Urine Leukocyte Esterase NEG Urine WBC (Auto) 1-5 /hpf Urine RBC (Auto) 0-4 /hpf Urine Hyaline Casts (Auto) 1-5 /lpf Urine Epithelial Cells (Auto) 10-20 /lpf Urine Bacteria (Auto) NEG Urine Test NEG Assessment and Plan appendicitis -post op questionable colitis -on abx per surgery -with this, and bowel hx - would anticipate an outpt colo in near future, although does not need to be pursued urgently chronic constipation -seems to fit best w constipation predominant IBS, but with above - would anticipate outpt colo in near but not immediate future chronic intermittent epigastric pain -?related to IBS vs gastritis -very tender to touch now - will treat empirically w protonix, then have outpt follow up; low threshold for EGD if doesn't improve neck pain -likely situational related to anesthesia concern on affect -appeared OK and talkative with me, suspect being far from home, surgical situation, scared all contributed to withdrawn affect before. would continue to have outpt f/u but nothing overt for psych pathology seemed evident - definitely will ask to have established w regular PCP for f/u of all of above as well as to have continuity in case anything psych is "hiding beneath the surface" DVT proph -per surgery
[2016-04-16] MEDS ORDERED: PANTOprazole SOD 40 MG TAB PO ONE (21:35)
[2016-04-16] MEDS ORDERED: FAMOTIDINE IV INJ 20 MG in DEXTROSE 5% 100ML 100 ML IV ONE (22:00)
[2016-04-17] MEDS: PROMETHAZINE HCL INJ 12.5 MG in SODIUM CHLORIDE 0.9% 50ML 50 ML IV PRN (01:03)
[2016-04-17] MEDS: KETOROLAC TROMETHAMINE 30 MG/ML VIAL IV. SCH ×3 (03:48→15:45)
--- NOTE | 2016-04-17 06:01 | Discharge Instructions ---
Discharge Instructions Admission Reason for Admission: Acute Appendicitis, Colitis Discharge Discharge Diagnosis / Problem: appendicitis Discharge Goals Goal(s): Decrease discomfort, Improve function, Improve disease control Activity Recommendations Activity Limitations: as noted below Lifting Limitations: no more than 10 pounds Exercise/Sports Limitations: until after follow-up appointment May Resume Sexual Activity: when tolerated Shower/Bathe: no limitations (may shower, no bath) Driving or Machine Use: resume 3 days after discharge SPECIAL CARE INSTRUCTIONS: * Cover incisions and change daily for comfort/drainage. May leave uncovered with dermabond * Leave steristrips in place * May use ibuprofen for pain as tolerated. * Expect some swelling and bruising. Call your doctor if: * Temperature above 101 degrees * Pain not relieved by pain medicine ordered * There is increased drainage or redness from any incision * You have any unanswered questions or concerns [phone]. FOLLOW UP VISIT: If not already scheduled, please call the office for a follow-up visit. for 2-3 weeks- checkup OFFICE PHONE NUMBER: Dr. Garcia Office . Current Hospital Diet Patient's current hospital diet: Regular Diet Discharge Diet Recommended Diet: Regular Diet Procedures Procedures Performed: Laparoscopic appendectomy Pending Studies Studies pending at discharge: no School Instructions Return To School: 1 week Medical Emergencies . Who to Call and When: Medical Emergencies: If at any time you feel your situation is an emergency, please call 911 immediately. . Non-Emergent Contact Non-Emergency issues call your: Primary Care Provider, Surgeon . "Provider Documentation" section prepared by Michael Garcia. VTE Core Measure Inpt VTE Proph given/why not?: SCD's
[2016-04-17] MEDS ORDERED: PROM25TA9 PO (06:02)
[2016-04-17] MEDS: METRONIDAZOLE / NSS 500 MG in PREMIXED NSS 100 ML IV SCH ×3 (06:08→22:48)
--- NOTE | 2016-04-17 06:55 | Surgery Progress Note ---
Surgery Progress Note Date of Service Apr 17, 2016. Subjective some nausea- pain last night - no vomiting or diarrhea excellent urine output Objective Vital Signs: Date Time Temp Pulse Resp B/P Pulse Ox O2 Delivery O2 Flow Rate FiO2 04/16/16 23:55 Room Air 04/16/16 23:45 Room Air 04/16/16 23:06 36.5 75 16 98/60 99 Room Air 04/16/16 19:30 36.3 76 18 99/67 97 Room Air 04/16/16 15:30 36.4 73 16 105/65 97 Room Air 04/16/16 11:08 37.1 89 16 100/64 97 Room Air 04/16/16 07:43 Room Air 04/16/16 07:03 37.1 82 16 93/53 97 Room Air General Appearance: no apparent distress Respiratory/Chest: no respiratory distress Abdomen: normal bowel sounds, soft, + tenderness Incision(s): intact Assessment & Plan 04/17/16- I don't there is any acute problem , but pt not ready for d/c. Will cont current meds and supportive care. Ask GI to see for colonic edema- probable d/c 1-[address] Luna covering over weekend 04/16/16- s/p lap appendectomy- colonic edema on CT but colon looked normal intraop- will cont IV atbx today- prob d/c tomorrow . 04/16/16- s/p lap appendectomy- colonic edema on CT but colon looked normal intraop- will cont IV atbx today- prob d/c tomorrow .
[2016-04-17 07:16] VITALS: BP 95/55; PULSE 77; TEMP 36.9; O2SAT 97
[2016-04-17 08:00] VITALS: O2SAT 97
[2016-04-17 08:28] LABS: INR 1.1 (0.9-1.1)
[2016-04-17] MEDS: PANTOprazole SOD 40 MG TAB PO SCH ×2 (09:55→22:48)
[2016-04-17] MEDS: ENOXAPARIN 30 MG/0.3 ML SYR SQ SCH (10:06)
--- NOTE | 2016-04-17 10:38 | Gastrointestinal Consultation ---
Gastrointestinal Consultation Date of Consultation: Apr 17, 2016 Attending Physician: Jose Consulting Physician: Doc Reason for Consultation: ? colitis History of Present Illness Patient is a 20 year old female with past medical history significant for acute appendicitis s/p appendectomy on 04/15/16. GI was consulted today for ? colitis from an admission CT scan. Patient was seen and evaluated today. She reports that she feels well. She is denying any lower GI symptoms. There is no abdominal cramping or pain. No diarrhea or constipation. Last BM was yesterday and it was formed. No black or bloody stools. There is report of longstanding lower GI symptoms with constipation. She reports no black or bloody stools after long bouts of constipation. She is reporting mild epigastric pain. This became present after a few bouts of vomiting yesterday. She reports that the pain is burning and constant. She had an episode of severe epigastric pain last night around 4 am. The pain did not radiate. No fever, chills, chest pain or SOB. CT abd 04/15/16: The lung bases are clear. No pneumoperitoneum. No pneumatosis. The liver, gallbladder, pancreas, spleen, kidneys, and adrenal glands are unremarkable. No retroperitoneal lymphadenopathy. Mild bladder wall thickening may be due to underdistention. There is a heterogeneous appearance to the endometrium. There is unremarkable. Diffuse mild thickening of the colon which is fluid-filled. No evidence for bowel obstruction. There is also a distended and fluid-filled appendix with associated periappendiceal fat stranding/fluid. No perforation or abscess. The appendix measures up to 1 cm in diameter. Past Medical/Surgical History Medical Problems: (1) Acute appendicitis Status: Acute (2) Colitis Status: Acute Family History Patient reports no known family medical history. Social History Smoking Status: Never Smoker Marital Status: single Occupation Status: [employer] student Allergies Coded Allergies: No Known Allergies (Unverified , 05/31/14) Current Medications Home Meds and Scripts Medications Dose Route/Sig Max Daily Dose Days Date Category Dose Instructions Phenergan (Promethazine HCl) 25 Mg Tab 25 Mg PO Q6H PRN 04/17/16 Rx Cipro (Ciprofloxacin Hcl) 500 Mg Tab 1 Tab PO BID 7 04/16/16 Rx Herman 5MG/325MG (Acetaminophen/Hydrocodone Bitart) Tab 1-2 Tablet PO Q 6 HRS PRN 04/16/16 Rx PRN PAIN Review of Systems Constitutional: No chills, No fever Respiratory: No cough, No shortness of breath Cardiac: No chest pain, No edema Abdomen: + pain, No GI bleeding, No constipation, No diarrhea, No nausea, No vomiting Physical Exam Date Time Temp Pulse Resp B/P Pulse Ox O2 Delivery O2 Flow Rate FiO2 04/17/16 07:16 36.9 77 17 95/55 97 Room Air 04/16/16 23:55 Room Air 04/16/16 23:45 Room Air 04/16/16 23:06 36.5 75 16 98/60 99 Room Air 04/16/16 19:30 36.3 76 18 99/67 97 Room Air 04/16/16 15:30 36.4 73 16 105/65 97 Room Air 04/16/16 11:08 37.1 89 16 100/64 97 Room Air General Appearance: no apparent distress (patient was sleeping in bed prior to my exam) Eyes: PERRL, EOMI ENT: hearing grossly normal Neck: supple, trachea midline Respiratory/Chest: lungs clear, normal breath sounds, no respiratory distress, no accessory muscle use Cardiovascular: regular rate, rhythm, no edema, no gallop, no JVD, no murmur Abdomen: normal bowel sounds, soft, no organomegaly, + tenderness (epigastric tenderness with palpation, abdominal tenderss generalized) Laboratory Results Last 24 Hours Test 04/17/16 07:42 Prothrombin Time 12.0 SECONDS Prothromb Time International Ratio 1.1 Impression Patient is a 20 year old female s/p appendectomy on 04/15/[address] imaging suggestive of diffuse mild thickening of the colon which is fluid-filled. The patient has no lower GI symptoms and reports normal BMs. She is reporting epigastric discomfort prevalent after several episodes of nausea and vomiting yesterday. Differentials include non-specfiic colitis, infectious colitis, IBD, gastritis, esophagitis. Plan Diet as tolerated. PPI BID Carafate 1 gram PO QID Outpatient follow up - eval for ?IBS-C. EGD/Colon as outpatient if appropriate No GI contraindication to discharge. I performed a history and physical examination of the patient. I have discussed the patient's case, impression and plan with DAVID Bledsoe. Her note reflects my findings and plan. CT reviewed. The colon has some slight wall thickening which is of doubtful significance. No need to change you current treatment. Austin Roach MD
[2016-04-17 12:15] VITALS: BP 88/51; PULSE 64; TEMP 36.5; O2SAT 97
[2016-04-17] MEDS: SUCRALFATE 1 GM TAB PO SCH ×3 (13:00→22:48)
[2016-04-17] MEDS: CIPROFLOXACIN / D5W 400 MG in PREMIXED IN D5W 200 ML IV SCH (13:13)
[2016-04-17] MEDS: ONDANSETRON INJ 2 MG/ML 2 ML VIAL IV PRN (15:41)
[2016-04-17] MEDS: LACTATED RINGER'S 1000ML 1,000 ML IV SCH (15:49)
--- NOTE | 2016-04-17 16:41 | Progress Note ---
Subjective Date of Service: Apr 17, 2016. Problem List Medical Problems: (1) Acute appendicitis Status: Acute (2) Colitis Status: Acute Objective Vital Signs Date Time Temp Pulse Resp B/P Pulse Ox O2 Delivery O2 Flow Rate FiO2 04/17/16 12:15 36.5 64 18 88/51 97 Room Air 04/17/16 08:00 97 Room Air 04/17/16 07:16 36.9 77 17 95/55 97 Room Air 04/16/16 23:55 Room Air 04/16/16 23:45 Room Air 04/16/16 23:06 36.5 75 16 98/60 99 Room Air 04/16/16 19:30 36.3 76 18 99/67 97 Room Air Laboratory Results Last 24 Hours Test 04/17/16 07:42 Prothrombin Time 12.0 SECONDS Prothromb Time International Ratio 1.1 Assessment and Plan 20 F with s/p appendectomy, did have comments on ct of colonic thickening, per hospital has IBDZ sx doing well after surgery but still with some pain and due to questionable colitis -on cipro/flagyl per surgery GI medicine did see and recommends outpt colo in near future, although does not need to be pursued urgently
[2016-04-17] MEDS ORDERED: LORAZEPAM 2 MG/ML 1 ML VIAL IV PRN ×2 (17:00)
[2016-04-17] MEDS ORDERED: LORAZEPAM 0.5 MG TAB PO PRN (17:00)
[2016-04-17] MEDS ORDERED: LORAZEPAM INJ 1 MG in SYRINGE 0.5 ML IV PRN (17:15)
[2016-04-17] MEDS ORDERED: LORAZEPAM INJ 0.5 MG in SYRINGE 0.25 ML IV PRN (17:15)
[2016-04-17] MEDS: MoRPHine SULFATE 2 MG/ML CARP IV PRN (18:00)
[2016-04-17] MEDS ORDERED: ACETAMINOPHEN SOLN 500 MG/15.62 ML UDP PO PRN (20:15)
[2016-04-17 21:12] LABS: BASO % 0.1 %; BASO ABS # 0.01 K/uL (0-0.2); COMPLETE YES; EOS % 0.5 %; HEMATOCRIT 29.3 % (37-47); IG% 0.3 %; LYMPH % 14.6 %; LYMPH ABS # 1.13 K/uL (1.2-3.4); MEAN CELL VOLUME 88.8 fL (80-100); MEAN CORPUSCULAR HEMOGLOBIN 29.4 pg (25-34); MEAN CORPUSCULAR HGB CONC 33.1 g/dl (32-36); MEAN PLATELET VOLUME 9.7 fL (7.4-10.4); MONO % 9.3 %; NEUT % 75.2 %; PLATELET COUNT 198 K/uL (130-400); WHITE BLOOD COUNT 7.74 K/uL (4.8-10.8)
[2016-04-17 23:11] VITALS: BP 105/66; PULSE 87; TEMP 37; O2SAT 96
[2016-04-18] MEDS: CIPROFLOXACIN / D5W 400 MG in PREMIXED IN D5W 200 ML IV SCH ×3 (00:26→23:23)
[2016-04-18] MEDS: METRONIDAZOLE / NSS 500 MG in PREMIXED NSS 100 ML IV SCH ×3 (05:38→21:15)
[2016-04-18 07:37] VITALS: BP 106/66; PULSE 100; TEMP 37.2; O2SAT 97
[2016-04-18 08:36] LABS: BLOOD UREA NITROGEN 9 mg/dl (7-18); BUN/CREATININE RATIO 17.1 (10-20); CALCIUM 7.6 mg/dl (8.5-10.1); CARBON DIOXIDE 24 mmol/L (21-32); CHLORIDE 104 mmol/L (98-107); CREATININE 0.51 mg/dl (0.60-1.20); GLUCOSE 93 mg/dl (70-99); POTASSIUM 3.2 mmol/L (3.5-5.1); SODIUM 138 mmol/L (136-145)
[2016-04-18] MEDS: ENOXAPARIN 30 MG/0.3 ML SYR SQ SCH (09:00)
[2016-04-18] MEDS: PANTOprazole SOD 40 MG TAB PO SCH ×2 (09:01→21:00)
[2016-04-18] MEDS: SUCRALFATE 1 GM TAB PO SCH ×4 (09:02→21:00)
[2016-04-18] MEDS: LACTATED RINGER'S 1000ML 1,000 ML IV SCH (10:57)
--- NOTE | 2016-04-18 12:36 | Progress Note ---
Subjective Date of Service: Apr 18, 2016. Subjective pt is walking in [address], is with better pain control, did see GI medicine and will follow up outpt for IBDZ Problem List Medical Problems: (1) Acute appendicitis Status: Acute (2) Colitis Status: Acute Review of Systems Constitutional: + fatigue, + weakness, No chills, No fever Respiratory: No cough, No shortness of breath, No wheezing Cardiac: No chest pain, No edema Abdomen: + pain, No diarrhea, No nausea, No vomiting Female : No dysuria, No urinary frequency Objective Vital Signs Date Time Temp Pulse Resp B/P Pulse Ox O2 Delivery O2 Flow Rate FiO2 04/18/16 07:40 Room Air 04/18/16 07:37 37.2 100 16 106/66 97 Room Air 04/18/16 00:30 Room Air 04/17/16 23:11 37.0 87 14 105/66 96 Room Air 04/17/16 15:30 Room Air Physical Exam General Appearance: WD/WN, + mild distress Neck: supple, no JVD Respiratory/Chest: chest non-tender, lungs clear, normal breath sounds Cardiovascular: regular rate, rhythm, no murmur Abdomen: normal bowel sounds, soft, + abnormal bowel sounds, + tenderness Extremities: no pedal edema, no calf tenderness Neurologic/Psychiatric: alert, oriented x 3 Laboratory Results Last 24 Hours Test 04/17/16 20:59 04/18/16 07:35 White Blood Count 7.74 K/uL Red Blood Count 3.30 M/uL Hemoglobin 9.7 g/dL Hematocrit 29.3 % Mean Corpuscular Volume 88.8 fL Mean Corpuscular Hemoglobin 29.4 pg Mean Corpuscular Hemoglobin Concent 33.1 g/dl Platelet Count 198 K/uL Mean Platelet Volume 9.7 fL Neutrophils (%) (Auto) 75.2 % Lymphocytes (%) (Auto) 14.6 % Monocytes (%) (Auto) 9.3 % Eosinophils (%) (Auto) 0.5 % Basophils (%) (Auto) 0.1 % Neutrophils # (Auto) 5.82 K/uL Lymphocytes # (Auto) 1.13 K/uL Monocytes # (Auto) 0.72 K/uL Eosinophils # (Auto) 0.04 K/uL Basophils # (Auto) 0.01 K/uL RDW Standard Deviation 44.2 fL RDW Coefficient of Variation 13.5 % Immature Granulocyte % (Auto) 0.3 % Immature Granulocyte # (Auto) 0.02 K/uL C-Reactive Protein 7.27 mg/dl Sodium Level 138 mmol/L Potassium Level 3.2 mmol/L Chloride Level 104 mmol/L Carbon Dioxide Level 24 mmol/L Anion Gap 10.0 mmol/L Blood Urea Nitrogen 9 mg/dl Creatinine 0.51 mg/dl Est Creatinine Clear Calc Drug Dose 136.9 ml/min Estimated GFR () > 150.0 Estimated GFR (Non- 136.5 BUN/Creatinine Ratio 17.1 Random Glucose 93 mg/dl Calcium Level 7.6 mg/dl Assessment and Plan 20 F with s/p appendectomy, did have comments on ct of colonic thickening, per hospital has IBDZ sx doing well after surgery but still with some pain and due to questionable colitis -on cipro/flagyl per surgery, they will make final determination if needed at home Medically decision for disposition is in surgeries domain GI medicine did see and recommends outpt colo in near future, although does not need to be pursued urgently
--- NOTE | 2016-04-18 13:01 | Surgery Progress Note ---
Surgery Progress Note Date of Service Apr 18, 2016. Subjective Wants to go home. Feels mildly nauseated at times but she is passing flatus and able to tolerate diet. Pain meds working OK. Has been ambulating. Objective Vital Signs: Date Time Temp Pulse Resp B/P Pulse Ox O2 Delivery O2 Flow Rate FiO2 04/18/16 07:40 Room Air 04/18/16 07:37 37.2 100 16 106/66 97 Room Air 04/18/16 00:30 Room Air 04/17/16 23:11 37.0 87 14 105/66 96 Room Air 04/17/16 15:30 Room Air General Appearance: WD/WN, no apparent distress Head: normocephalic, atraumatic Respiratory/Chest: normal breath sounds, no respiratory distress Cardiovascular: regular rate, rhythm Abdomen: normal bowel sounds, non tender, non distended, soft Incision(s): clean, dry, intact Extremities: no pedal edema Laboratory Results: Results Past 24 Hours Test 04/17/16 20:59 04/18/16 07:35 Range/Units White Blood Count 7.74 4.8-10.8 K/uL Red Blood Count 3.30 4.2-5.4 M/uL Hemoglobin 9.7 12.0-16.0 g/dL Hematocrit 29.3 37-47 % Mean Corpuscular Volume 88.8 80-100 fL Mean Corpuscular Hemoglobin 29.4 25-34 pg Mean Corpuscular Hemoglobin Concent 33.1 32-36 g/dl Platelet Count 198 130-400 K/uL Mean Platelet Volume 9.7 7.4-10.4 fL Neutrophils (%) (Auto) 75.2 % Lymphocytes (%) (Auto) 14.6 % Monocytes (%) (Auto) 9.3 % Eosinophils (%) (Auto) 0.5 % Basophils (%) (Auto) 0.1 % Neutrophils # (Auto) 5.82 1.4-6.5 K/uL Lymphocytes # (Auto) 1.13 1.2-3.4 K/uL Monocytes # (Auto) 0.72 0.11-0.59 K/uL Eosinophils # (Auto) 0.04 0-0.5 K/uL Basophils # (Auto) 0.01 0-0.2 K/uL RDW Standard Deviation 44.2 36.4-46.3 fL RDW Coefficient of Variation 13.5 11.5-14.5 % Immature Granulocyte % (Auto) 0.3 % Immature Granulocyte # (Auto) 0.02 0.00-0.02 K/uL C-Reactive Protein 7.27 0-0.29 mg/dl Sodium Level 138 136-145 mmol/L Potassium Level 3.2 3.5-5.1 mmol/L Chloride Level 104 98-107 mmol/L Carbon Dioxide Level 24 21-32 mmol/L Anion Gap 10.0 3-11 mmol/L Blood Urea Nitrogen 9 7-18 mg/dl Creatinine 0.51 0.60-1.20 mg/dl Est Creatinine Clear Calc Drug Dose 136.9 ml/min Estimated GFR () > 150.0 Estimated GFR (Non- 136.5 BUN/Creatinine Ratio 17.1 10-20 Random Glucose 93 70-99 mg/dl Calcium Level 7.6 8.5-10.1 mg/dl Microbiology Results 04/17/16 Blood Culture, Received Pending 04/17/16 Blood Culture, Received Pending Assessment & Plan s/p lap appendectomy with possible colitis afterwards. On cipro/ flagyl. OK for discharge today.
[2016-04-18] MEDS ORDERED: ACETAMINOPHEN SOLN 500 MG/15.62 ML UDP PO PRN (13:15)
[2016-04-18 15:11] VITALS: BP 106/66; PULSE 100; TEMP 37.2; O2SAT 97
[2016-04-18 15:44] VITALS: BP 123/81; PULSE 88; TEMP 37; O2SAT 97
[2016-04-18] MEDS: ONDANSETRON INJ 2 MG/ML 2 ML VIAL IV PRN (21:14)
[2016-04-18 23:04] VITALS: BP 108/67; PULSE 109; TEMP 37.3; O2SAT 97
[2016-04-18] MEDS: PROMETHAZINE HCL INJ 12.5 MG in SODIUM CHLORIDE 0.9% 50ML 50 ML IV PRN (23:50)
[2016-04-19 00:41] LABS: BASO % 0.2 %; BASO ABS # 0.01 K/uL (0-0.2); COMPLETE YES; EOS % 0.8 %; HEMATOCRIT 28.7 % (37-47); IG% 0.2 %; LYMPH % 24.5 %; LYMPH ABS # 1.25 K/uL (1.2-3.4); MEAN CELL VOLUME 89.4 fL (80-100); MEAN CORPUSCULAR HEMOGLOBIN 29.6 pg (25-34); MEAN CORPUSCULAR HGB CONC 33.1 g/dl (32-36); MONO % 10.2 %; NEUT % 64.1 %; PLATELET COUNT 215 K/uL (130-400); RED BLOOD COUNT 3.21 M/uL (4.2-5.4)
[2016-04-19 00:58] LABS: BLOOD UREA NITROGEN 10 mg/dl (7-18); BUN/CREATININE RATIO 19.6 (10-20); CALCIUM 7.8 mg/dl (8.5-10.1); CARBON DIOXIDE 25 mmol/L (21-32); CHLORIDE 106 mmol/L (98-107); CREATININE 0.49 mg/dl (0.60-1.20); GLUCOSE 101 mg/dl (70-99); MAGNESIUM 1.9 mg/dl (1.8-2.4); POTASSIUM 3.2 mmol/L (3.5-5.1); SODIUM 144 mmol/L (136-145)
[2016-04-19] MEDS: METRONIDAZOLE / NSS 500 MG in PREMIXED NSS 100 ML IV SCH (05:25)
[2016-04-19] MEDS: LACTATED RINGER'S 1000ML 1,000 ML IV SCH (05:27)
--- NOTE | 2016-04-19 07:21 | DIAGNOSTIC IMAGING REPORT ---
KUB HISTORY: nausea w/emesis, increase in generalized abdominal pain. COMPARISON: Abdomen and pelvis CT 04/15/2016. FINDINGS: The bowel gas pattern is unremarkable. There are no dilated loops of small bowel to suggest an obstruction. No renal calculi. No ureteral calculi. No pneumoperitoneum or pneumatosis. There is suture material right lower quadrant. IMPRESSION: Unremarkable bowel gas pattern. No evidence for bowel obstruction. Electronically signed by: Reyes Noel M.D. 04/19/2016 7:19 AM Dictated Date/Time: 04/19/2016 7:18 AM
[2016-04-19 07:55] VITALS: BP 107/68; PULSE 78; TEMP 36.8; O2SAT 98
[2016-04-19] MEDS: PANTOprazole SOD 40 MG TAB PO SCH (08:36)
[2016-04-19] MEDS: SUCRALFATE 1 GM TAB PO SCH (08:36)
[2016-04-19] MEDS: ENOXAPARIN 30 MG/0.3 ML SYR SQ SCH (08:37)
[2016-04-19] MEDS ORDERED: POTASSIUM CHLR 10 MEQ / WTR 10 MEQ in PREMIXED WATER 100 ML IV SCH (09:30)
--- NOTE | 2016-04-19 09:30 | Surgery Progress Note ---
Surgery Progress Note Date of Service Apr 19, 2016. Subjective Sitting in chair. Really wants to go home. Had some more nausea and vomiting yesterday. Feels as though the hospital is making her sicker. Objective Vital Signs: Date Time Temp Pulse Resp B/P Pulse Ox O2 Delivery O2 Flow Rate FiO2 04/19/16 07:55 36.8 78 16 107/68 98 Room Air 04/19/16 07:50 Room Air 04/18/16 23:04 37.3 109 16 108/67 97 Room Air 04/18/16 19:30 Room Air 04/18/16 15:44 37.0 88 16 123/81 97 Room Air 04/18/16 15:11 37.2 100 16 97 Room Air General Appearance: WD/WN, no apparent distress Respiratory/Chest: normal breath sounds, no accessory muscle use Cardiovascular: regular rate, rhythm, no murmur Abdomen: normal bowel sounds, non tender, non distended, soft Incision(s): clean, dry, intact Laboratory Results: Results Past 24 Hours Test 04/19/16 00:31 Range/Units White Blood Count 5.10 4.8-10.8 K/uL Red Blood Count 3.21 4.2-5.4 M/uL Hemoglobin 9.5 12.0-16.0 g/dL Hematocrit 28.7 37-47 % Mean Corpuscular Volume 89.4 80-100 fL Mean Corpuscular Hemoglobin 29.6 25-34 pg Mean Corpuscular Hemoglobin Concent 33.1 32-36 g/dl Platelet Count 215 130-400 K/uL Mean Platelet Volume 10.0 7.4-10.4 fL Neutrophils (%) (Auto) 64.1 % Lymphocytes (%) (Auto) 24.5 % Monocytes (%) (Auto) 10.2 % Eosinophils (%) (Auto) 0.8 % Basophils (%) (Auto) 0.2 % Neutrophils # (Auto) 3.27 1.4-6.5 K/uL Lymphocytes # (Auto) 1.25 1.2-3.4 K/uL Monocytes # (Auto) 0.52 0.11-0.59 K/uL Eosinophils # (Auto) 0.04 0-0.5 K/uL Basophils # (Auto) 0.01 0-0.2 K/uL RDW Standard Deviation 42.8 36.4-46.3 fL RDW Coefficient of Variation 13.1 11.5-14.5 % Immature Granulocyte % (Auto) 0.2 % Immature Granulocyte # (Auto) 0.01 0.00-0.02 K/uL Sodium Level 144 136-145 mmol/L Potassium Level 3.2 3.5-5.1 mmol/L Chloride Level 106 98-107 mmol/L Carbon Dioxide Level 25 21-32 mmol/L Anion Gap 13.0 3-11 mmol/L Blood Urea Nitrogen 10 7-18 mg/dl Creatinine 0.49 0.60-1.20 mg/dl Est Creatinine Clear Calc Drug Dose 142.5 ml/min Estimated GFR () > 150.0 Estimated GFR (Non- 138.3 BUN/Creatinine Ratio 19.6 10-20 Random Glucose 101 70-99 mg/dl Calcium Level 7.8 8.5-10.1 mg/dl Magnesium Level 1.9 1.8-2.4 mg/dl Assessment & Plan s/p lap appendectomy with possible colitis afterwards. On cipro/ flagyl. AXR looks good with no sign of obstruction. Her lab values look good. Explained that I would like to have her try to avoid narcotics and stay on a bland diet for a few days. She is OK to go home. We discussed that if she has persistent vomiting at home, she should return.
[2016-04-19] MEDS: POTASSIUM CHLORIDE 20 MEQ TABCR PO ONE ×2 (10:29→10:31)
== END 2016-04-19 10:53 | disposition home or self-care (01) | DRG 343 ==
LOC: ENRESERVTM → ENRESERVDT → EDBD 15:33 → C.EDB 15:41 → EDBD 15:41 → C.MSW 20:20 → MERGE 20:20
PROVIDERS: ADMIT Surgery; ATTEND Surgery
PROC: 0DTJ4ZZ Resection of Appendix, Percutaneous Endoscopic Approach (ICD-10-PCS; principal; 2016-04-15 19:00)
DX: K35.80 Unspecified acute appendicitis (principal); K59.09 Other constipation; M54.2 Cervicalgia; K52.9 Noninfective gastroenteritis and colitis, unspecified; K29.70 Gastritis, unspecified, without bleeding; Z91.19 Patient's noncompliance with other medical treatment and regimen